=== PATIENT | male | born 1985 | race Caucasian/White ===

== ENCOUNTER 2016-06-27 18:22 | Emergency (ER) | payer SELFPAY ==
[~2016-06-27] VITALS: Ht 187.9 cm; Wt 158.8 kg
[~2016-06-27 18:22] MED LIST: VALSARTAN-HCTZ1 EAC3 PO
[2016-06-27] MEDS ORDERED: ANAPROX DS550 MG PO (19:54)
[2016-06-27] MEDS ORDERED: ULTRAM50 MG PO (19:54)
== END 2016-06-27 20:06 | disposition home or self-care (01) ==
LOC: ED 18:22
DX: I80.02 Phlebitis and thrombophlebitis of superficial vessels of left lower extremity (principal)

== ENCOUNTER 2018-04-05 11:49 | Emergency (ER) | payer SELFPAY ==
[~2018-04-05] VITALS: Ht 190.5 cm; Wt 163.3 kg
[~2018-04-05 11:49] MED LIST changes: +ANAPROX DS550 MG PO; +AVALIDE 300-121 EACH PO; +CEPHALEXIN500 M1 PO; +ULTRAM50 MG PO
== END 2018-04-05 12:32 | disposition home or self-care (01) ==
LOC: ED 11:49
DX: B34.9 Viral infection, unspecified (principal); Z79.899 Other long term (current) drug therapy

== ENCOUNTER 2018-08-13 11:58 | Emergency (ER) | payer SELFPAY ==
[~2018-08-13] VITALS: Ht 187.9 cm; Wt 172.4 kg
[2018-08-13] MEDS ORDERED: TAMIFLU 75MG CA75 MG PO (13:57)
== END 2018-08-13 15:29 | disposition home or self-care (01) ==
LOC: ED 11:58
DX: J10.1 Influenza due to other identified influenza virus with other respiratory manifestations (principal); Z79.899 Other long term (current) drug therapy

== ENCOUNTER 2020-08-03 17:06 | Emergency (ER) | payer SELFPAY ==
[~2020-08-03] VITALS: Ht 187.9 cm; Wt 179.2 kg
[~2020-08-03 17:06] MED LIST changes: +TAMIFLU 75MG CA75 MG PO
[2020-08-03] MEDS ORDERED: CEPHALEXIN500 M1 PO (18:43)
[2020-08-03] MEDS ORDERED: IBUPROFEN600 MG PO (18:49)
== END 2020-08-03 19:14 | disposition home or self-care (01) ==
LOC: ED 17:06
DX: S01.511A Laceration without foreign body of lip, initial encounter (principal); I10 Essential (primary) hypertension; Z79.899 Other long term (current) drug therapy; W18.09XA Striking against other object with subsequent fall, initial encounter; Y93.89 Activity, other specified; Y92.89 Other specified places as the place of occurrence of the external cause; Y99.8 Other external cause status

== ENCOUNTER 2020-08-28 11:57 | Emergency (ER) | payer BC ==
[~2020-08-28] VITALS: Ht 187.9 cm; Wt 176.9 kg
[~2020-08-28 11:57] MED LIST changes: +IBUPROFEN600 MG PO
== END 2020-08-28 12:44 | disposition home or self-care (01) ==
LOC: ED 11:57
DX: I78.1 Nevus, non-neoplastic (principal); I10 Essential (primary) hypertension; Z79.2 Long term (current) use of antibiotics; Z79.899 Other long term (current) drug therapy

== ENCOUNTER 2020-09-12 10:09 | Emergency (ER) | payer BC ==
[~2020-09-12] VITALS: Ht 187.9 cm; Wt 176.9 kg
[2020-09-12 10:51] LABS: BASO % 0.4 % (0.0-1.0); EOS # 0.1 10*3/uL (0.0-0.4); EOS % 1.2 % (1.0-4.0); HEMATOCRIT 43.5 % (42.0-52.0); LYMPH # 1.9 10*3/uL (1.3-4.4); LYMPH % 19.5 % (27.0-41.0); MEAN CORPUSCULAR HGB 31.2 pg (27.0-31.0); MEAN CORPUSCULAR HGB CONC 34.3 g/dl (33.0-37.0); MEAN PLATELET VOLUME 10.1 fl (9.6-12.3); MONO # 0.7 10*3/uL (0.1-1.0); MONO % 7.1 % (3.0-9.0); NEUT % 71.6 % (47.0-73.0); PLATELET COUNT AUTOMATED 317 10*3/uL (130-400); RED BLOOD COUNT 4.78 10*6/uL (4.50-5.90); RED CELL DISTRI WIDTH 12.9 % (0-14.5); WHITE BLOOD COUNT 9.8 10*3/uL (4.8-10.8)
[2020-09-12 11:09] LABS: ALBUMIN 3.6 gm/dl (3.1-4.5); ALKALINE PHOSPHATASE 88 U/L (45-117); BUN 13 mg/dl (7-24); CHLORIDE 106 mmol/L (98-107); CREATININE 1.01 mg/dL (0.70-1.30); POTASSIUM 3.5 mmol/L (3.5-5.1); SGOT/AST 23 IU/L (3-35); SGPT/ALT 35 U/L (12-78); SODIUM 139 mmol/L (136-145); TOTAL PROTEIN 8.3 gm/dL (6.4-8.2); TROPONIN I < 0.015 ng/ml (<0.045)
== END 2020-09-12 12:17 | disposition home or self-care (01) ==
LOC: ED 10:09
PROVIDERS: Internal Medicine
DX: R00.2 Palpitations (principal); Z79.899 Other long term (current) drug therapy

== ENCOUNTER → 2021-05-30 | Outpatient (CLI) | payer BC | END | disposition home or self-care (01) | LOC: COVID19 14:52 | PROVIDERS: ATTEND Internal Medicine | DX: U07.1 COVID-19 (principal) ==

== ENCOUNTER 2021-09-26 08:33 | Emergency (ER) | payer BC ==
[2021-09-26] MEDS ORDERED: METOPROLOL SUCC50 M1 PO (08:39)
[2021-09-26] MEDS ORDERED: NAPROXEN250 MG PO (10:18)
[2021-09-26] MEDS ORDERED: TYLENOL325 M1 PO (10:18)
[2021-09-26] MEDS ORDERED: CYCLOBENZAPRINE10 MG PO (10:18)
[2021-09-26] MEDS ORDERED: VOLTAREN ARTHRI20 GM T (10:19)
== END 2021-09-26 10:30 | disposition home or self-care (01) ==
LOC: ED 08:33
DX: M54.50 Low back pain, unspecified (principal); Z79.899 Other long term (current) drug therapy

== ENCOUNTER 2021-11-14 10:54 | Emergency (ER) | payer BC ==
[~2021-11-14] VITALS: Wt 179.2 kg
[~2021-11-14 10:54] MED LIST changes: +CYCLOBENZAPRINE10 MG PO; +METOPROLOL SUCC50 M1 PO; +NAPROXEN250 MG PO; +TYLENOL325 M1 PO; +VOLTAREN ARTHRI20 GM T
[2021-11-14] MEDS ORDERED: MEDROL DOSEPAK4 MG PO (14:47)
[2021-11-14] MEDS ORDERED: NAPROSYN500 MG PO (14:47)
[2021-11-14] MEDS ORDERED: HYDROCODONE-AC1 EAC1 PO (20:33)
== END 2021-11-14 14:57 | disposition home or self-care (01) ==
LOC: ED 10:54
DX: S39.92XA Unspecified injury of lower back, initial encounter (principal); Z79.899 Other long term (current) drug therapy; X50.9XXA Other and unspecified overexertion or strenuous movements or postures, initial encounter; Y93.89 Activity, other specified; Y92.89 Other specified places as the place of occurrence of the external cause; Y99.8 Other external cause status

== ENCOUNTER 2021-11-14 16:08 | Emergency (ER) | payer BC ==
[~2021-11-14] VITALS: Ht 187.9 cm; Wt 179.2 kg
[~2021-11-14 16:08] MED LIST changes: +MEDROL DOSEPAK4 MG PO; +NAPROSYN500 MG PO
[2021-11-14] MEDS ORDERED: HYDROCODONE-AC1 EAC1 PO (20:33)
== END 2021-11-14 20:43 | disposition home or self-care (01) ==
LOC: ED 16:08
DX: M54.6 Pain in thoracic spine (principal)

== ENCOUNTER 2024-07-03 08:16 | Emergency (ER) | payer OTHER ==
[~2024-07-03] VITALS: Ht 187.9 cm; Wt 183.7 kg
[~2024-07-03 08:16] MED LIST changes: +HYDROCODONE-AC1 EAC1 PO
[2024-07-03] MEDS ORDERED: Acetaminophen/Oxycodone 5 MG/325 MG TABLET PO ONE (08:40)
[2024-07-03] MEDS ORDERED: TRIAMCINOLONE ACETONIDE 40 MG/ML VIAL IM ONE (08:40)
[2024-07-03] MEDS ORDERED: NAPROSYN500 MG PO (08:43)
[2024-07-03] MEDS ORDERED: BENICAR HCT 401 EAC1 PO (08:51)
== END 2024-07-03 10:19 | disposition home or self-care (01) ==
LOC: ED 08:16
DX: M54.41 Lumbago with sciatica, right side (principal); M51.369 Other intervertebral disc degeneration, lumbar region without mention of lumbar back pain or lower extremity pain; M48.061 Spinal stenosis, lumbar region without neurogenic claudication; I10 Essential (primary) hypertension; R20.0 Anesthesia of skin; M79.604 Pain in right leg